=== PATIENT | female | born 1980 ===

== ENCOUNTER 2018-08-14 21:18 | Emergency (ER) | payer SELFPAY ==
[~2018-08-14] VITALS: Ht 162.6 cm; Wt 110.6 kg
[2018-08-14 21:22] VITALS: BP 138/92; PULSE 108; RESP 20; Ht 162.6 cm; Wt 110.6 kg
== END 2018-08-15 02:27 | disposition left against medical advice (07) ==
LOC: FTE 21:18
DX: Z53.21 Procedure and treatment not carried out due to patient leaving prior to being seen by health care provider (principal)